=== PATIENT | male | born 1985 | race Hispanic/Latino ===

== ENCOUNTER 2025-04-16 06:07 | Emergency (ER) | payer SELFPAY ==
[2025-04-16] MEDS ORDERED: Ondansetron PF 4 MG/2 ML Vial ONE (06:26)
[2025-04-16 06:42] LABS: #Basophils 0.10 10x3/uL (0.0-0.2); #Eosinophils Less than 0.03 10x3/uL (0.0-0.5); #Monocytes 0.85 10x3/uL (0.0-1.1); #Neutrophils 15.71 10x3/uL (1.5-8.4); %Basophils 0.5 % (0.0-2.0); %Eosinophils 0.1 % (0.0-6.0); %Lymphocytes 10.9 % (18.0-47.0); %Monocytes 4.5 % (0.0-10.0); %Neutrophils 83.6 % (40.0-75.0); Hematocrit 51.7 % (38.8-50.0); Hemoglobin 18.0 g/dL (13.5-17.5); Mean Corpuscular Hemoglobin 29.7 pg (27.0-33.0); Mean Corpuscular Volume 85.2 fL (81.2-95.1); Platelet Count 265 10x3/uL (150-450); Red Blood Cell (RBC) Count 6.07 10x6/uL (4.32-5.72); White Blood Cell (WBC) Count 18.80 10x3/uL (3.5-10.5)
[2025-04-16 06:54] LABS: ALT (SGPT) 60 U/L (Less than 45); AST (SGOT) 39 U/L (11-34); Albumin 5.4 g/dL (3.1-4.5); Alkaline Phosphatase 90 U/L (40-110); Anion Gap 17 mmol/L (10-20); BUN (Urea Nitrogen) 13 mg/dL (8.9-20.6); Bilirubin, Total 1.0 mg/dL (0.3-1.2); Calc. Creatinine Clearance 0 mL/min (70-130); Calcium 10.5 mg/dL (7.8-10.44); Carbon Dioxide 25 mmol/L (22-29); Chloride 102 mmol/L (98-107); Globulin 3.0 g/dL (2.4-3.5); Glucose 141 mg/dL (70-105); Potassium 4.8 mmol/L (3.5-5.1); Sodium 139 mmol/L (136-145)
[2025-04-16 07:01] LABS: Troponin I Less than 0.010 ng/mL (< 0.028)
[2025-04-16] MEDS ORDERED: hydrALAZINE 20 MG/ML VIAL ONE (07:10)
[2025-04-16 07:54] LABS: Glucose, Urine (Dipstick) Normal (Negative); Leukocyte Negative (Negative); Protein, Urine (Dipstick) 30 mg/dl (Neg-Trace); Specific Gravity, Urine 1.005 (1.005-1.030)
[2025-04-16] MEDS ORDERED: Azithromycin 500 MG VIAL ONE (08:00)
[2025-04-16] MEDS ORDERED: cefTRIAXone (ROCEPHIN) 1 GM VIAL ONE (08:00)
[2025-04-16 08:03] LABS: Bacteria/HPF None Seen HPF (None Seen); CAUTI Indications for Culture Alt mental st,lethar; RBC/HPF 0-3 HPF (0-3); Urine Culture Reflex No No; WBC/HPF 0-3 HPF (0-3)
[2025-04-16] MEDS ORDERED: Iopamidol 370 76% 100 ML VIAL ONE (10:05)
== END 2025-04-16 10:20 | disposition home or self-care (01) ==
LOC: CSHERS 06:07
DX: J18.9 Pneumonia, unspecified organism (principal); R03.0 Elevated blood-pressure reading, without diagnosis of hypertension; F17.210 Nicotine dependence, cigarettes, uncomplicated
CPT/HCPCS: 71045; 71275; 74176; 80053; 81001; 83880; 84484; 85025; 87428; 93005; 93010; 96365; 96367; 96375; J0360; J0456; J0696; J2270; J2405; Q9967